=== PATIENT | male | born 1985 | race Asian ===

== ENCOUNTER 2017-12-06 09:29 | Day surgery (SDC) | payer MEDICAID ==
[~2017-12-06] VITALS: Ht 167.6 cm; Wt 75.8 kg
[~2017-12-06 09:29] MED LIST: LISI40TA4 PO; albuterol 2.5 MG/3 ML nebule NEB ONE; cefazolin/dext.iso 2gm/50ml 50 ML IV ONE; famotidine 20mg tablet PO ONE; ringers solution, lacted 1,000 ML IV SCH
[2017-12-06 10:42] LABS: BASOPHILS % (AUTO) 0.5 % (0-1); EOSINOPHILS # (AUTO) 0.2 X10'3 (0-0.9); EOSINOPHILS % (AUTO) 2.9 % (0-6); LYMPHOCYTES # (AUTO) 1.7 X10'3 (1.1-4.8); LYMPHOCYTES % (AUTO) 22.6 % (21-51); MEAN CORPUSCULAR HEMOGLOBIN 29.9 PG (27.0-31.0); MEAN CORPUSCULAR HGB CONC 35.2 % (33.0-36.5); MEAN PLATELET VOLUME 7.7 FL (7.4-10.4); MONOCYTES # (AUTO) 0.6 X10'3 (0-0.9); NEUTROPHILS # (AUTO) 4.9 X10'3 (1.8-7.7); PRE OP HEMATOCRIT 43.3 % (42.0-52.0); PRE OP HEMOGLOBIN 15.2 g/dL (14.0-17.9); PRE OP PLATELET COUNT 309 X10'3 (140-440); RED BLOOD COUNT 5.09 X10'6 (4.70-6.10); RED CELL DISTRIBUTION WIDTH 13.5 % (11.5-14.5)
[2017-12-06 10:53] VITALS: BP 125/72
[2017-12-06 10:55] VITALS: BP 125/72
[2017-12-06 10:55] LABS: ALBUMIN 3.7 G/DL (3.4-5.0); ALKALINE PHOSPHATASE 67 IU/L (46-116); BLOOD UREA NITROGEN 12 MG/DL (7-18); BUN/CREATININE RATIO 12.4 (5.4-32.0); CALCIUM 8.8 MG/DL (8.5-10.1); CHLORIDE 107 MMOL/L (99-107); CREATININE 0.97 MG/DL (0.60-1.10); PRE OP ALT 24 U/L (30-65); PRE OP ANION GAP 9 (8-16); PRE OP AST 19 U/L (10-37); PRE OP BILIRUB, TOTAL 0.5 MG/DL (0.0-1.0); PRE OP GLUCOSE 102 MG/DL (70-104); PRE OP POTASSIUM 3.9 MMOL/L (3.4-5.1); PRE OP SODIUM 142 MMOL/L (135-145); TOTAL CARBON DIOXIDE 26.2 MMOL/L (24-32); TOTAL PROTEIN 7.4 G/DL (6.4-8.2); eGFR 90 ML/MIN
[2017-12-06] MEDS ORDERED: ringers solution, lacted 1,000 ML IV SCH (13:26)
[2017-12-06] MEDS ORDERED: proCHLORperazine 10 MG/2 ml inj IV PRN (13:30)
[2017-12-06] MEDS ORDERED: ondansetron/PF 4mg/2ml inj IV PRN (13:30)
[2017-12-06] MEDS ORDERED: morphine 2 MG/ML inj. syringe IV PRN ×2 (13:30)
[2017-12-06] MEDS ORDERED: meperidine/PF 50mg/ml syringe IV PRN ×3 (13:30)
[2017-12-06] MEDS ORDERED: propofol inj 20 ML IV ONE (14:15)
[2017-12-06] MEDS ORDERED: midazolam 2 mg/2 ml injection ONE (14:15)
[2017-12-06] MEDS ORDERED: fentaNYL/PF 50MCG/1 ML 2ML syringe ONE (14:15)
[2017-12-06] MEDS ORDERED: LIDOcaine 1% 30ml vial IJ ONE (14:36)
[2017-12-06] MEDS ORDERED: BUPIVAcaine/PF 2.5 mg/ml (0.25%) 30ml vial IJ ONE (14:37)
[2017-12-06 14:55] VITALS: BP 143/91
[2017-12-06] MEDS ORDERED: BUPIVAcaine/PF 2.5 mg/ml (0.25%) 30ml vial ONE (15:04)
[2017-12-06] MEDS ORDERED: LIDOcaine 1% 30ml vial 30 ML ONE (15:04)
[2017-12-06 15:05] VITALS: BP 137/86
[2017-12-06 15:15] VITALS: BP 148/81
== END 2017-12-06 15:25 | disposition home or self-care (01) ==
LOC: PAS 09:29
PROVIDERS: ATTEND Surgery
DX: D17.79 Benign lipomatous neoplasm of other sites (principal); I10 Essential (primary) hypertension; F17.210 Nicotine dependence, cigarettes, uncomplicated; Z79.899 Other long term (current) drug therapy
CPT/HCPCS: 23140; 36415; 80053; 85025; 93005; A6449; J0690; J2250; J2704; J3010; J3490; J7120; A7000

== ENCOUNTER 2022-08-06 12:27 | Inpatient (IN) | payer MEDICAID ==
[~2022-08-06] VITALS: Ht 167.6 cm; Wt 68.1 kg
[~2022-08-06 12:27] MED LIST changes: +CHLO10CA6 PO; +ESCI10TA PO; +FOLI1TAB27 PO; +LISI40TA13 PO; -LISI40TA4 PO; +MULT-25 PO; +NALT50TA PO; +NICO-631 TOP; +PANT40TA54 PO; +PYRI-3 PO; -albuterol 2.5 MG/3 ML nebule NEB ONE; -cefazolin/dext.iso 2gm/50ml 50 ML IV ONE; -famotidine 20mg tablet PO ONE; -ringers solution, lacted 1,000 ML IV SCH
[2022-08-06 13:39] LABS: ANION GAP 7 (8-16); BLOOD UREA NITROGEN 10 MG/DL (7-18); BUN/CREATININE RATIO 9.4 (5.4-32.0); CALCIUM 9.1 MG/DL (8.5-10.1); CHLORIDE 90 MMOL/L (99-107); CREATININE 1.06 MG/DL (0.60-1.10); GLUCOSE 123 MG/DL (70-104); POTASSIUM 3.5 MMOL/L (3.5-5.1); SODIUM 131 MMOL/L (135-145); TOTAL CARBON DIOXIDE 34.2 MMOL/L (24-32); eGFR 79 ML/MIN
[2022-08-06 13:40] LABS: ALANINE AMINOTRANSFERASE 48 U/L (12-78); ALBUMIN 2.6 G/DL (3.4-5.0); ALBUMIN/GLOBULIN RATIO 0.4 (1.1-1.5); ALKALINE PHOSPHATASE 234 IU/L (46-116); ASPARTATE AMINO TRANSFERASE 65 U/L (10-37); BILIRUBIN,TOTAL 2.1 MG/DL (0.1-1.0); TOTAL PROTEIN 8.6 G/DL (6.4-8.2)
[2022-08-06 13:47] LABS: BASOPHILS # (AUTO) 0.1 X10'3 (0-0.2); BASOPHILS % (AUTO) 0.3 % (0-1); EOSINOPHILS # (AUTO) 0.1 X10'3 (0-0.9); EOSINOPHILS % (AUTO) 0.2 % (0-6); HEMATOCRIT 44.6 % (42.0-52.0); HEMOGLOBIN 15.2 g/dl (14.0-17.9); LYMPHOCYTES # (AUTO) 1.1 X10'3 (1.1-4.8); LYMPHOCYTES % (AUTO) 3.6 % (21-51); MEAN CORPUSCULAR HEMOGLOBIN 30.7 PG (27.0-31.0); MEAN CORPUSCULAR HGB CONC 34.2 g/dL (33.0-36.5); MEAN PLATELET VOLUME 7.7 FL (7.4-10.4); MONOCYTES # (AUTO) 1.9 X10'3 (0-0.9); NEUTROPHILS # (AUTO) 28.1 X10'3 (1.8-7.7); NEUTROPHILS % (AUTO) 89.9 % (42-75); PLATELET COUNT 446 X10'3 (140-440); RED BLOOD COUNT 4.95 X10'6 (4.70-6.10); RED CELL DISTRIBUTION WIDTH 17.8 % (11.5-14.5)
[2022-08-06 13:51] LABS: LIPASE 3845 U/L (73-393)
[2022-08-06 13:58] LABS: WHITE BLOOD COUNT 31.3 X10'3 (4.5-11.0)
--- NOTE | 2022-08-06 14:01 | NUR ---
RN received critical lab result: WBC 31.3. RN notified Dr. Salomon. aware.
[2022-08-06 14:28] LABS: ANISOCYTOSIS 1+; PLATELET ESTIMATE INCREASED; TOTAL CELLS COUNTED 100
[2022-08-06 14:38] LABS: CLARITY,URINE CLOUDY (Clear); GLUCOSE, URINE 100 mg/dl (Neg); KETONES,URINE TRACE mg/dl (Neg); LEUKOCYTE ESTERASE ,URINE NEGATIVE (Neg); OCCULT BLOOD,URINE TRACE-INTACT (Neg); PH,URINE 5.5 (4.8-8.0); PROTEIN,URINE 100 mg/dl (Neg); UROBILINOGEN,URINE >=8.0 E.U/dL (0.2-1.0)
[2022-08-06 14:39] LABS: COLOR,URINE AMBER (Yellow); NITRITES, URINE NEGATIVE (Neg); UA COLLECTION TYPE CLN CATCH MIDSTREAM
[2022-08-06] MEDS ORDERED: iohexol 300mg/ml 100ml inj. ONE (14:43)
[2022-08-06 14:49] LABS: BACTERIA,URINE 1+ /HPF (Neg); CELLULAR CAST 0-4 /LPF (NEGATIVE); MUCUS STRANDS MODERATE /LPF (Neg); RBC,URINE 0-2 /HPF (0-2); SQUAMOUS EPITHELIAL CELL,UR MODERATE /LPF (FEW)
[2022-08-06 14:50] LABS: TRANSITIONAL EPI CELLS,URINE FEW /HPF
[2022-08-06] MEDS ORDERED: normal saline 1000ML IV soln IVB ONE ×2 (14:55)
[2022-08-06] MEDS ORDERED: morphine 4 MG/ML inj SYRINge IV ONE (14:55)
[2022-08-06] MEDS ORDERED: piperacillin/tazo 3.375gm/50ml 50 ML IV ONE (15:00)
[2022-08-06] MEDS ORDERED: mag hydrox/Alum hydrox/simeth 30ml oral suspension PO PRN (16:00)
[2022-08-06] MEDS ORDERED: dextrose 50%-water 50ml dispensing syringe IV PRN (16:00)
[2022-08-06] MEDS ORDERED: LORazepam 2 mg/ml vial IV PRN ×2 (16:00)
[2022-08-06] MEDS ORDERED: morphine 2 MG/ML inj. syringe IV PRN ×2 (16:00)
[2022-08-06] MEDS ORDERED: acetaminophen 325mg tablet PO PRN (16:00)
[2022-08-06] MEDS ORDERED: ondansetron/PF 4mg/2ml inj IV PRN (16:00)
[2022-08-06] MEDS ORDERED: potassium CL 10mEq/100ml bag 100 ML IV PRN (16:00)
[2022-08-06] MEDS ORDERED: magnesium Cl slow-release 64mg tablet PO PRN (16:00)
[2022-08-06] MEDS ORDERED: haloperidol lactate 5mg/ml inj IM PRN (16:00)
[2022-08-06] MEDS ORDERED: magnesium 4gm in 100ml NS 100 ML IV PRN (16:00)
[2022-08-06] MEDS ORDERED: magnesium 2GM in 50ml NS 50 ML IV PRN (16:00)
[2022-08-06] MEDS ORDERED: normal saline 1000ml 1,000 ML IV SCH (16:00)
[2022-08-06] MEDS ORDERED: magnesium hydroxide 30ml (MOM) UD suspension PO PRN (16:00)
[2022-08-06] MEDS ORDERED: POTASSIUM BICARB 20meq eff tab 20 MEQ TABLET.EFF PO PRN ×2 (16:00)
[2022-08-06 16:21] LABS: MAGNESIUM 1.9 MG/DL (1.5-2.4)
[2022-08-06] MEDS: normal saline 1000ml 1,000 ML IV SCH (18:05)
[2022-08-06] MEDS ORDERED: FOLI0.4T14 PO (18:57)
[2022-08-06] MEDS ORDERED: NALT50TA PO (18:57)
[2022-08-06] MEDS: morphine 2 MG/ML inj. syringe IV PRN ×2 (19:42→23:44)
[2022-08-06] MEDS: thiamine 100mg/ml 2ml inj. IV SCH (19:42)
[2022-08-06] MEDS ORDERED: K and/or MAG REPLACEMENT MC SCH (20:00)
[2022-08-06] MEDS ORDERED: docusate sod 100mg capsule PO SCH (20:00)
[2022-08-06] MEDS ORDERED: enoxaparin 30mg/0.3ml syringe SQ SCH (20:00)
[2022-08-06] MEDS ORDERED: thiamine 100mg/ml 2ml inj. IV SCH (21:00)
[2022-08-06] MEDS: piperacillin/tazo 3.375gm/50ml 50 ML IV SCH (23:44)
[2022-08-06] MEDS ORDERED: zolpidem 5mg tablet PO ONE (23:55)
[2022-08-07] MEDS: normal saline 1000ml 1,000 ML IV SCH ×4 (00:45→14:17)
[2022-08-07 04:41] LABS: BASOPHILS # (AUTO) 0.1 X10'3 (0-0.2); BASOPHILS % (AUTO) 0.4 % (0-1); EOSINOPHILS # (AUTO) 0.1 X10'3 (0-0.9); EOSINOPHILS % (AUTO) 0.5 % (0-6); HEMATOCRIT 38.7 % (42.0-52.0); HEMOGLOBIN 12.7 g/dl (14.0-17.9); LYMPHOCYTES # (AUTO) 1.3 X10'3 (1.1-4.8); LYMPHOCYTES % (AUTO) 5.2 % (21-51); MEAN CORPUSCULAR HEMOGLOBIN 29.8 PG (27.0-31.0); MEAN CORPUSCULAR HGB CONC 32.9 g/dL (33.0-36.5); MEAN CORPUSCULAR VOLUME 90.5 FL (78-98); MEAN PLATELET VOLUME 7.4 FL (7.4-10.4); MONOCYTES # (AUTO) 1.5 X10'3 (0-0.9); MONOCYTES % (AUTO) 6.1 % (2-12); NEUTROPHILS # (AUTO) 22.1 X10'3 (1.8-7.7); NEUTROPHILS % (AUTO) 87.8 % (42-75); PLATELET COUNT 321 X10'3 (140-440); RED BLOOD COUNT 4.28 X10'6 (4.70-6.10); RED CELL DISTRIBUTION WIDTH 18.2 % (11.5-14.5)
[2022-08-07 04:45] LABS: ALANINE AMINOTRANSFERASE 35 U/L (12-78); ALBUMIN 1.8 G/DL (3.4-5.0); ALBUMIN/GLOBULIN RATIO 0.4 (1.1-1.5); ALKALINE PHOSPHATASE 179 IU/L (46-116); ANION GAP 6 (8-16); ASPARTATE AMINO TRANSFERASE 50 U/L (10-37); BILIRUBIN,TOTAL 1.7 MG/DL (0.1-1.0); BLOOD UREA NITROGEN 9 MG/DL (7-18); BUN/CREATININE RATIO 11.7 (5.4-32.0); CALCIUM 7.7 MG/DL (8.5-10.1); CHLORIDE 100 MMOL/L (99-107); CREATININE 0.77 MG/DL (0.60-1.10); GLUCOSE 109 MG/DL (70-104); SODIUM 135 MMOL/L (135-145); TOTAL CARBON DIOXIDE 29.2 MMOL/L (24-32); TOTAL PROTEIN 6.6 G/DL (6.4-8.2); eGFR > 90 ML/MIN
[2022-08-07 04:59] LABS: WHITE BLOOD COUNT 25.2 X10'3 (4.5-11.0)
[2022-08-07] MEDS ORDERED: potassium Cl 10 mEq/100mL bag IV ONE ×3 (05:00→08:40)
[2022-08-07 05:32] LABS: TOTAL CELLS COUNTED 100
[2022-08-07 05:33] LABS: ANISOCYTOSIS 2+; PLATELET ESTIMATE NORMAL
[2022-08-07 05:34] LABS: LARGE PLATELETS FEW; TARGET CELLS 1+
[2022-08-07] MEDS ORDERED: normal saline 1000ml 1,000 ML IV ONE (07:20)
[2022-08-07] MEDS: piperacillin/tazo 3.375gm/50ml 50 ML IV SCH (07:58)
[2022-08-07] MEDS ORDERED: folic acid 1mg/0.2ml inj IV SCH (08:00)
[2022-08-07] MEDS ORDERED: piperacillin/tazo 3.375gm/50ml 50 ML IV ONE (08:00)
[2022-08-07] MEDS: thiamine 100mg/ml 2ml inj. IV SCH ×3 (08:08→20:55)
[2022-08-07] MEDS: morphine 2 MG/ML inj. syringe IV PRN (08:15)
[2022-08-07] MEDS: folic acid 1mg/0.2ml inj IV SCH (08:23)
[2022-08-07] MEDS ORDERED: diatrozoate meglu/diatrozoate sod (37% iodine) 120ML oral solution PO ONE (10:46)
--- NOTE | 2022-08-07 10:52 | NUR ---
Per Desean, microfilm technician, RN to administer 50 ml of gastrogafin to pt at one time, diluted in 200-250 ml of fluid, with the CT to be performed [address] Kruger's orders.
[2022-08-07] MEDS ORDERED: ondansetron/PF 4mg/2ml inj IV PRN (13:30)
[2022-08-07] MEDS ORDERED: morphine 2 MG/ML inj. syringe IV PRN ×2 (13:30)
[2022-08-07] MEDS ORDERED: mag hydrox/Alum hydrox/simeth 30ml oral suspension PO PRN (13:30)
[2022-08-07] MEDS ORDERED: HYDROcodone/acetaminophen 5mg/325mg tablet PO PRN (13:30)
[2022-08-07] MEDS ORDERED: magnesium hydroxide 30ml (MOM) UD suspension PO PRN (13:30)
[2022-08-07] MEDS ORDERED: acetaminophen 325mg tablet PO PRN ×2 (13:30)
[2022-08-07] MEDS: piperacillin/tazo 4.5gm/100ml 100 ML IV SCH (18:07)
[2022-08-07 18:09] VITALS: BP 131/93
--- NOTE | 2022-08-07 18:56 | NUR ---
Problems reprioritized. Patient report given, questions answered & plan of care reviewed with GRACIELA RN.
[2022-08-07] MEDS: docusate sod 100mg capsule PO SCH (20:00)
[2022-08-07 22:00] VITALS: BP 135/85
[2022-08-07 22:31] LABS: URINE AMPHETAMINE SCREEN NEGATIVE (Neg); URINE BARBITUATE SCREEN NEGATIVE (Neg); URINE BENZODIAZEPINES SCREEN NEGATIVE (Neg); URINE CANNABINOID SCREEN POSITIVE (Neg); URINE COCAINE SCREEN NEGATIVE (Neg); URINE METHADONE SCREEN NEGATIVE (Neg); URINE OPIATE SCREEN POSITIVE (Neg); URINE PHENCYCLIDINE SCREEN NEGATIVE (Neg)
[2022-08-08] VITALS (14 sets, daily range): BP systolic 108–152; BP diastolic 64–106
[2022-08-08] MEDS ORDERED: magnesium 2GM in 50ml NS 50 ML IV PRN (00:15)
[2022-08-08] MEDS ORDERED: potassium CL 10mEq/100ml bag 100 ML IV PRN (00:15)
[2022-08-08] MEDS ORDERED: magnesium 4gm in 100ml NS 100 ML IV PRN (00:15)
[2022-08-08] MEDS ORDERED: POTASSIUM BICARB 20meq eff tab 20 MEQ TABLET.EFF PO PRN (00:15)
[2022-08-08] MEDS ORDERED: magnesium Cl slow-release 64mg tablet PO PRN (00:15)
[2022-08-08] MEDS: POTASSIUM BICARB 20meq eff tab 20 MEQ TABLET.EFF PO PRN ×4 (00:28→15:33)
[2022-08-08] MEDS: normal saline 1000ml 1,000 ML IV SCH ×2 (00:28→09:30)
[2022-08-08] MEDS: piperacillin/tazo 4.5gm/100ml 100 ML IV SCH ×3 (00:28→15:33)
[2022-08-08 06:32] LABS: BASOPHILS # (AUTO) 0.1 X10'3 (0-0.2); BASOPHILS % (AUTO) 0.4 % (0-1); EOSINOPHILS # (AUTO) 0.1 X10'3 (0-0.9); EOSINOPHILS % (AUTO) 0.5 % (0-6); HEMATOCRIT 37.5 % (42.0-52.0); HEMOGLOBIN 12.2 g/dl (14.0-17.9); LYMPHOCYTES # (AUTO) 1.1 X10'3 (1.1-4.8); LYMPHOCYTES % (AUTO) 4.9 % (21-51); MEAN CORPUSCULAR HEMOGLOBIN 29.6 PG (27.0-31.0); MEAN CORPUSCULAR HGB CONC 32.6 g/dL (33.0-36.5); MEAN CORPUSCULAR VOLUME 90.9 FL (78-98); MEAN PLATELET VOLUME 7.2 FL (7.4-10.4); MONOCYTES # (AUTO) 1.4 X10'3 (0-0.9); MONOCYTES % (AUTO) 6.4 % (2-12); NEUTROPHILS # (AUTO) 19.4 X10'3 (1.8-7.7); NEUTROPHILS % (AUTO) 87.8 % (42-75); PLATELET COUNT 333 X10'3 (140-440); RED BLOOD COUNT 4.12 X10'6 (4.70-6.10); RED CELL DISTRIBUTION WIDTH 18.1 % (11.5-14.5); WHITE BLOOD COUNT 22.1 X10'3 (4.5-11.0)
--- NOTE | 2022-08-08 06:49 | NUR ---
Problems reprioritized. Patient report given, questions answered & plan of care reviewed with ELIZABETH DE LA CRUZ.
[2022-08-08 07:24] LABS: ALANINE AMINOTRANSFERASE 39 U/L (12-78); ALBUMIN 1.8 G/DL (3.4-5.0); ALBUMIN/GLOBULIN RATIO 0.4 (1.1-1.5); ALKALINE PHOSPHATASE 193 IU/L (46-116); ANION GAP 9 (8-16); ASPARTATE AMINO TRANSFERASE 59 U/L (10-37); BLOOD UREA NITROGEN 7 MG/DL (7-18); CALCIUM 7.8 MG/DL (8.5-10.1); CHLORIDE 102 MMOL/L (99-107); GLUCOSE 101 MG/DL (70-104); MAGNESIUM 1.9 MG/DL (1.5-2.4); POTASSIUM 3.4 MMOL/L (3.5-5.1); SODIUM 136 MMOL/L (135-145); TOTAL CARBON DIOXIDE 25.5 MMOL/L (24-32); TOTAL PROTEIN 6.4 G/DL (6.4-8.2); eGFR > 90 ML/MIN
--- NOTE | 2022-08-08 07:32 | NUR ---
Patient in room PCU 3020. I have received report from GRACIELA, RN, and had the opportunity to ask questions and assume patient care.
[2022-08-08] MEDS: docusate sod 100mg capsule PO SCH ×2 (08:00→20:00)
[2022-08-08] MEDS: K and/or MAG REPLACEMENT MC SCH ×2 (08:00→19:38)
[2022-08-08] MEDS: thiamine 100mg/ml 2ml inj. IV SCH ×3 (09:19→20:49)
[2022-08-08] MEDS: folic acid 1mg/0.2ml inj IV SCH ×2 (09:20→15:34)
--- NOTE | 2022-08-08 09:44 | NUR ---
PAGE SENT PAGER ID: [phone] MESSAGE: [id number], ZORA WALDROP, CRITICAL LAB - HGB 6.8, HCT 21.3. THANK YOU, KAREN [id number] Addendum: 08/08/22 at 0956 by Karen Chase RN WRONG PT
[2022-08-08] MEDS ORDERED: fentaNYL/PF 50MCG/1 ML 2ML syringe ONE ×2 (12:45→12:46)
[2022-08-08] MEDS ORDERED: MIDAZolam 1 MG/ML 5ML VIAL ONE ×2 (12:45→12:46)
[2022-08-08] MEDS ORDERED: LIDOcaine Viscous 15ml cup ONE ×2 (12:45→12:47)
[2022-08-08] MEDS ORDERED: diphenhydrAMINE 50 mg/ml inj ONE (14:04)
--- NOTE | 2022-08-08 18:01 | NUR ---
PT KEPT REMOVING BP CUFF FOR POST PROCEDURE VS SO REGULAR VS COULDN'T BE TAKEN.
--- NOTE | 2022-08-08 18:41 | NUR ---
Problems reprioritized. Patient report given, questions answered & plan of care reviewed with ELIZABETH AMBRIZ AND SN PATRICIO.
[2022-08-09] VITALS (9 sets, daily range): BP systolic 126–159; BP diastolic 73–109
[2022-08-09] MEDS: piperacillin/tazo 4.5gm/100ml 100 ML IV SCH ×4 (00:02→23:24)
[2022-08-09] MEDS: normal saline 1000ml 1,000 ML IV SCH ×4 (03:54→23:25)
--- NOTE | 2022-08-09 04:56 | NUR ---
Student documentation: I have reviewed and agree with all interventions, assessments performed and documented by TIANA White.
[2022-08-09 06:24] LABS: BASOPHILS # (AUTO) 0.1 X10'3 (0-0.2); BASOPHILS % (AUTO) 0.4 % (0-1); EOSINOPHILS # (AUTO) 0.1 X10'3 (0-0.9); EOSINOPHILS % (AUTO) 0.9 % (0-6); HEMATOCRIT 37.6 % (42.0-52.0); HEMOGLOBIN 12.5 g/dl (14.0-17.9); LYMPHOCYTES # (AUTO) 1.2 X10'3 (1.1-4.8); LYMPHOCYTES % (AUTO) 7.3 % (21-51); MEAN CORPUSCULAR HEMOGLOBIN 30.1 PG (27.0-31.0); MEAN CORPUSCULAR HGB CONC 33.3 g/dL (33.0-36.5); MEAN CORPUSCULAR VOLUME 90.4 FL (78-98); MEAN PLATELET VOLUME 7.2 FL (7.4-10.4); MONOCYTES # (AUTO) 1.1 X10'3 (0-0.9); MONOCYTES % (AUTO) 6.5 % (2-12); NEUTROPHILS # (AUTO) 13.9 X10'3 (1.8-7.7); NEUTROPHILS % (AUTO) 84.9 % (42-75); PLATELET COUNT 338 X10'3 (140-440); RED BLOOD COUNT 4.16 X10'6 (4.70-6.10); RED CELL DISTRIBUTION WIDTH 17.9 % (11.5-14.5); WHITE BLOOD COUNT 16.4 X10'3 (4.5-11.0)
[2022-08-09 06:42] LABS: ALANINE AMINOTRANSFERASE 35 U/L (12-78); ALBUMIN 1.9 G/DL (3.4-5.0); ALBUMIN/GLOBULIN RATIO 0.4 (1.1-1.5); ALKALINE PHOSPHATASE 174 IU/L (46-116); ANION GAP 7 (8-16); ASPARTATE AMINO TRANSFERASE 43 U/L (10-37); BILIRUBIN,TOTAL 0.7 MG/DL (0.1-1.0); BLOOD UREA NITROGEN 5 MG/DL (7-18); BUN/CREATININE RATIO 6.6 (5.4-32.0); CALCIUM 7.9 MG/DL (8.5-10.1); CHLORIDE 104 MMOL/L (99-107); CREATININE 0.76 MG/DL (0.60-1.10); GLUCOSE 93 MG/DL (70-104); MAGNESIUM 1.8 MG/DL (1.5-2.4); POTASSIUM 3.4 MMOL/L (3.5-5.1); SODIUM 137 MMOL/L (135-145); TOTAL CARBON DIOXIDE 25.9 MMOL/L (24-32); TOTAL PROTEIN 6.4 G/DL (6.4-8.2); eGFR > 90 ML/MIN
[2022-08-09] MEDS: K and/or MAG REPLACEMENT MC SCH ×2 (08:00→19:00)
[2022-08-09] MEDS: docusate sod 100mg capsule PO SCH ×2 (08:00→19:00)
[2022-08-09] MEDS ORDERED: folic acid 0.4mg tablet PO SCH (08:00)
--- NOTE | 2022-08-09 08:19 | NUR ---
Called pharmacy to verify darin Peter to hang 08/09/22 0000 dose as 08/09/22 0800. NOC shift hung 08/09/22 0800 dose in error.
[2022-08-09] MEDS: naltrexone 50mg tablet PO SCH (08:23)
[2022-08-09] MEDS: POTASSIUM BICARB 20meq eff tab 20 MEQ TABLET.EFF PO PRN ×3 (08:25→19:57)
[2022-08-09] MEDS: thiamine 100mg/ml 2ml inj. IV SCH ×2 (08:25→13:14)
[2022-08-09] MEDS: pyridoxine 50mg tablet PO SCH (08:46)
--- NOTE | 2022-08-09 11:09 | NUR ---
Met with patient in regards to alcohol use and to see if patient was interested in resources for treatment options. Patient declined.
--- NOTE | 2022-08-09 14:03 | NUR ---
Per Dr Motta; ok for patient to eat now.
[2022-08-09] MEDS: HYDROcodone/acetaminophen 10/325mg tab PO PRN (16:15)
--- NOTE | 2022-08-09 18:50 | NUR ---
MD Tang paged regarding patient request for Kirk.
[2022-08-09] MEDS ORDERED: zolpidem 5mg tablet PO PRN (19:50)
[2022-08-10] VITALS (7 sets, daily range): BP systolic 139–159; BP diastolic 69–105
[2022-08-10] MEDS: HYDROcodone/acetaminophen 10/325mg tab PO PRN ×4 (02:25→19:34)
[2022-08-10 07:01] LABS: BASOPHILS # (AUTO) 0.1 X10'3 (0-0.2); BASOPHILS % (AUTO) 0.6 % (0-1); EOSINOPHILS # (AUTO) 0.1 X10'3 (0-0.9); EOSINOPHILS % (AUTO) 0.9 % (0-6); HEMATOCRIT 39.5 % (42.0-52.0); HEMOGLOBIN 13.5 g/dl (14.0-17.9); LYMPHOCYTES # (AUTO) 1.1 X10'3 (1.1-4.8); LYMPHOCYTES % (AUTO) 8.3 % (21-51); MEAN CORPUSCULAR HEMOGLOBIN 30.9 PG (27.0-31.0); MEAN CORPUSCULAR HGB CONC 34.1 g/dL (33.0-36.5); MEAN CORPUSCULAR VOLUME 90.6 FL (78-98); MEAN PLATELET VOLUME 7.2 FL (7.4-10.4); MONOCYTES # (AUTO) 0.9 X10'3 (0-0.9); MONOCYTES % (AUTO) 6.3 % (2-12); NEUTROPHILS # (AUTO) 11.5 X10'3 (1.8-7.7); NEUTROPHILS % (AUTO) 83.9 % (42-75); PLATELET COUNT 386 X10'3 (140-440); RED BLOOD COUNT 4.36 X10'6 (4.70-6.10); RED CELL DISTRIBUTION WIDTH 18.3 % (11.5-14.5); WHITE BLOOD COUNT 13.7 X10'3 (4.5-11.0)
[2022-08-10 07:41] LABS: MAGNESIUM 1.8 MG/DL (1.5-2.4)
[2022-08-10] MEDS: pyridoxine 50mg tablet PO SCH (07:52)
[2022-08-10] MEDS: piperacillin/tazo 4.5gm/100ml 100 ML IV SCH ×3 (07:53→23:00)
[2022-08-10] MEDS: docusate sod 100mg capsule PO SCH ×2 (07:53→19:27)
[2022-08-10] MEDS: naltrexone 50mg tablet PO SCH (07:53)
[2022-08-10] MEDS: K and/or MAG REPLACEMENT MC SCH ×2 (08:00→19:41)
[2022-08-10 08:23] LABS: POTASSIUM 4.4 MMOL/L (3.5-5.1)
[2022-08-10] MEDS: chlordiazePOXIDE 5mg capsule PO PRN (10:57)
--- NOTE | 2022-08-10 18:20 | NUR ---
Student documentation: I have reviewed and agree with all interventions, assessments performed and documented by Crystal.
--- NOTE | 2022-08-10 18:21 | NUR ---
Student Medication Administration: For this medication-pass time frame, all medication were reviewed, dispensed, administered and documented per hospital policy by alicia Rojas and Lou Johnston RN.
[2022-08-11 02:00] VITALS: BP 141/101
[2022-08-11 06:00] VITALS: BP 132/95
[2022-08-11] MEDS: piperacillin/tazo 4.5gm/100ml 100 ML IV SCH (07:21)
[2022-08-11] MEDS: chlordiazePOXIDE 5mg capsule PO PRN (07:22)
[2022-08-11] MEDS: naltrexone 50mg tablet PO SCH (07:22)
[2022-08-11] MEDS: pyridoxine 50mg tablet PO SCH (07:22)
[2022-08-11 07:53] LABS: BASOPHILS # (AUTO) 0.1 X10'3 (0-0.2); BASOPHILS % (AUTO) 0.5 % (0-1); EOSINOPHILS # (AUTO) 0.2 X10'3 (0-0.9); EOSINOPHILS % (AUTO) 1.7 % (0-6); HEMATOCRIT 39.3 % (42.0-52.0); HEMOGLOBIN 12.9 g/dl (14.0-17.9); LYMPHOCYTES # (AUTO) 1.5 X10'3 (1.1-4.8); LYMPHOCYTES % (AUTO) 10.9 % (21-51); MEAN CORPUSCULAR HGB CONC 32.9 g/dL (33.0-36.5); MEAN CORPUSCULAR VOLUME 91.1 FL (78-98); MEAN PLATELET VOLUME 7.3 FL (7.4-10.4); MONOCYTES # (AUTO) 1.2 X10'3 (0-0.9); MONOCYTES % (AUTO) 8.6 % (2-12); NEUTROPHILS # (AUTO) 10.5 X10'3 (1.8-7.7); NEUTROPHILS % (AUTO) 78.3 % (42-75); PLATELET COUNT 439 X10'3 (140-440); RED BLOOD COUNT 4.31 X10'6 (4.70-6.10); RED CELL DISTRIBUTION WIDTH 18.1 % (11.5-14.5); WHITE BLOOD COUNT 13.4 X10'3 (4.5-11.0)
[2022-08-11] MEDS ORDERED: folic acid 1mg tablet PO SCH (08:00)
[2022-08-11] MEDS ORDERED: thiamine 100mg tablet PO SCH (08:00)
[2022-08-11] MEDS ORDERED: HYDR-3965 PO (08:03)
[2022-08-11] MEDS ORDERED: AMOX-580 PO (08:03)
--- NOTE | 2022-08-11 11:58 | NUR ---
Reviewed discharge information with patient about when to return to the ED, medications, follow up appointments, (Pt to have follow up CT in 1 month). Pt stated that he had no questions or concerns at this time. Pt left the facility with belongings, via wheelchair to private vehicle
--- NOTE | 2022-08-11 12:03 | NUR ---
Student documentation: I have reviewed and agree with all interventions, assessments performed and documented by SN Nancy.
== END 2022-08-11 11:58 | disposition home or self-care (01) | DRG 282 ==
LOC: ER 12:27 → ED HOLD 13:31 → UNDOADMIN 16:00 → PCU 3S 08-07 17:00 → ED HOLD 08-07 17:00
PROVIDERS: ADMIT Family Medicine; ATTEND Family Medicine
PROC: BW211ZZ Computerized Tomography (CT Scan) of Abdomen and Pelvis using Low Osmolar Contrast (ICD-10-PCS; 2022-08-06)
PROC: 0DJ08ZZ Inspection of Upper Intestinal Tract, Via Natural or Artificial Opening Endoscopic (ICD-10-PCS; 2022-08-08)
PROC: 0F9G3ZZ Drainage of Pancreas, Percutaneous Approach (ICD-10-PCS; principal; 2022-08-09)
DX: K86.3 Pseudocyst of pancreas (principal); K76.6 Portal hypertension; I85.00 Esophageal varices without bleeding; K85.90 Acute pancreatitis without necrosis or infection, unspecified; R65.10 Systemic inflammatory response syndrome (SIRS) of non-infectious origin without acute organ dysfunction; Z20.822 Contact with and (suspected) exposure to COVID-19; E87.6 Hypokalemia; K31.89 Other diseases of stomach and duodenum; F10.20 Alcohol dependence, uncomplicated; F17.210 Nicotine dependence, cigarettes, uncomplicated; K52.9 Noninfective gastroenteritis and colitis, unspecified; K86.1 Other chronic pancreatitis; Z79.899 Other long term (current) drug therapy
CPT/HCPCS: 10160; 36415; 43235; 74176; 74177; 76942; 80053; 80305; 81001; 83605; 83690; 83735; 84132; 84145; 85007; 85025; 87040; 87070; 87081; 87088; 87811; 93005; 99152; 99285; A4615; A4620; G0378; J1200; J2250; J2270; J2543; J3010; J3411; J3480; J3490; J7030; J7040; Q9963; Q9967

== ENCOUNTER 2023-05-28 19:22 | Emergency (ER) | payer MEDICAID ==
[~2023-05-28] VITALS: Ht 167.6 cm; Wt 56.8 kg
[~2023-05-28 19:22] MED LIST changes: -ESCI10TA PO; +FOLI0.4T14 PO; -FOLI1TAB27 PO; -LISI40TA13 PO; -MULT-25 PO; -NICO-631 TOP; -PANT40TA54 PO
[2023-05-28 19:30] VITALS: TEMP 98.2
[2023-05-28 20:08] LABS: BASOPHILS # (AUTO) 0.1 X10'3 (0-0.2); BASOPHILS % (AUTO) 0.5 % (0-1); EOSINOPHILS # (AUTO) 0.2 X10'3 (0-0.9); EOSINOPHILS % (AUTO) 1.5 % (0-6); HEMATOCRIT 44.7 % (42.0-52.0); HEMOGLOBIN 15.4 g/dl (14.0-17.9); LYMPHOCYTES # (AUTO) 3.1 X10'3 (1.1-4.8); LYMPHOCYTES % (AUTO) 22.1 % (21-51); MEAN CORPUSCULAR HEMOGLOBIN 33.9 PG (27.0-31.0); MEAN CORPUSCULAR HGB CONC 34.5 g/dL (33.0-36.5); MEAN CORPUSCULAR VOLUME 98.3 FL (78-98); MEAN PLATELET VOLUME 8.6 FL (7.4-10.4); MONOCYTES # (AUTO) 1.8 X10'3 (0-0.9); MONOCYTES % (AUTO) 12.9 % (2-12); PLATELET COUNT 227 X10'3 (140-440); RED BLOOD COUNT 4.55 X10'6 (4.70-6.10); RED CELL DISTRIBUTION WIDTH 16.1 % (11.5-14.5); WHITE BLOOD COUNT 14.2 X10'3 (4.5-11.0)
[2023-05-28 20:12] LABS: ALANINE AMINOTRANSFERASE 75 U/L (12-78); ALBUMIN 3.2 G/DL (3.4-5.0); ALBUMIN/GLOBULIN RATIO 0.6 (1.1-1.5); ALKALINE PHOSPHATASE 317 IU/L (46-116); ANION GAP 23 (8-16); ASPARTATE AMINO TRANSFERASE 171 U/L (10-37); BILIRUBIN,TOTAL 1.4 MG/DL (0.1-1.0); BLOOD UREA NITROGEN 11 MG/DL (7-18); BUN/CREATININE RATIO 13.8 (10.0-20.0); CALCIUM 8.6 MG/DL (8.5-10.1); CHLORIDE 92 MMOL/L (99-107); GLUCOSE 83 MG/DL (70-104); POTASSIUM 3.1 MMOL/L (3.5-5.1); SODIUM 133 MMOL/L (135-145); TOTAL CARBON DIOXIDE 18.4 MMOL/L (24-32); eGFR > 90 ML/MIN
[2023-05-28 20:46] LABS: LIPASE 3861 U/L (73-393)
[2023-05-28 23:26] VITALS: BP 140/100; PULSE 125; O2SAT 98
[2023-05-29 00:03] LABS: CLARITY,URINE CLEAR (Clear); COLOR,URINE AMBER (Yellow); GLUCOSE, URINE NEGATIVE (Neg); KETONES,URINE 15 mg/dl (Neg); LEUKOCYTE ESTERASE ,URINE NEGATIVE (Neg); OCCULT BLOOD,URINE TRACE-INTACT (Neg); PROTEIN,URINE 100 mg/dl (Neg)
[2023-05-29 00:06] LABS: NITRITES, URINE NEGATIVE (Neg); UA COLLECTION TYPE CLN CATCH MIDSTREAM
[2023-05-29 00:09] LABS: MUCUS STRANDS MANY /LPF (Neg)
[2023-05-29 00:10] LABS: FINE GRANULAR CAST 0-3 /LPF (NEGATIVE); HYALINE CASTS >30 /LPF (NEGATIVE)
[2023-05-29 00:12] LABS: AMORPHOUS URATES 2+; BACTERIA,URINE NONE SEEN /HPF (Neg); RBC,URINE 0-2 /HPF (0-2); SQUAMOUS EPITHELIAL CELL,UR FEW /LPF (FEW); WBC,URINE 0-4 /HPF (0-4)
[2023-05-29 00:13] LABS: TRANSITIONAL EPI CELLS,URINE MODERATE /HPF
[2023-05-29] MEDS ORDERED: normal saline 1000ML IV soln IVB ONE ×2 (00:20)
[2023-05-29] MEDS ORDERED: thiamine 100mg/ml 2ml inj. IV ONE (00:20)
[2023-05-29] MEDS ORDERED: morphine 4 MG/ML inj SYRINge IV ONE (00:20)
[2023-05-29] MEDS ORDERED: POTASSIUM BICARB 20meq eff tab 20 MEQ TABLET.EFF PO ONE (00:25)
[2023-05-29 00:56] VITALS: RESP 18
== END 2023-05-29 01:44 | disposition home or self-care (01) ==
LOC: ER 19:22
DX: K85.90 Acute pancreatitis without necrosis or infection, unspecified (principal); Z72.89 Other problems related to lifestyle; Z79.899 Other long term (current) drug therapy
CPT/HCPCS: 36415; 80053; 81001; 83690; 85025; 96361; 96374; 96375; 99284; J2270; J3411; J7030; 81003; 99283